=== PATIENT | male | born 1965 | race Caucasian/White ===

== ENCOUNTER → 2017-09-18 | Outpatient (CLI) | payer BC ==
[~2017-09-18] MED LIST: ACTOS30 MG PO; APIDRA100 UNIT/1 SC; AVALIDE 150-121 EACH PO; AVALIDE 150/1 TABLET PO; CRESTOR20 MG PO; CRESTOR40 MG PO; HUMALOG100 UNIT/1 SC; HYDROCODON-ACE1 EAC7 PO; LANTUS 10100 UNITS/ SC; LANTUS100 UNIT/1 SQ; LEVOTHYROXINE100 MCG PO; LO-DOSE ASPIRIN81 M1 PO; NEXIUM40 MG PO; NOVOLOG 10100 UNITS/ SC; NOVOLOG100 UNIT/3 SQ; NUCYNTA75 MG PO; NUVIGIL150 MG PO; POTASSIUM; SYNTHROID75 MCG PO; TRICOR; TRICOR145 MG PO; VITAMIN D PO
== END | disposition home or self-care (01) ==
LOC: NUC 09:50
DX: R10.11 Right upper quadrant pain (principal)
CPT/HCPCS: 78227; A9510; J2805